=== PATIENT | male | born 1940 | race Caucasian/White ===

== ENCOUNTER 2022-05-20 15:24 | Inpatient (IN) | payer BC ==
[~2022-05-20] VITALS: Ht 172.7 cm; Wt 83.9 kg
[2022-05-20] VITALS (9 sets, daily range): BP systolic 96–131
[2022-05-20] MEDS ORDERED: FUROSEMIDE 40 MG/4 ML VIAL IVP ONE (15:45)
[2022-05-20] MEDS ORDERED: PROPOFOL DRIP 100 ML IV ONE ×2 (16:20→16:30)
[2022-05-20] MEDS ORDERED: SUCCINYLCHOLINE CHLORIDE 20 MG/ML(QUELICIN) ONE (17:00)
[2022-05-20] MEDS ORDERED: ETOMIDATE 20 MG/ 10 ML VIAL (AMIDATE) ONE (17:00)
[2022-05-20] MEDS ORDERED: AZITHROMYCIN 500 MG in NS 250 ML IV ONE (17:15)
[2022-05-20] MEDS ORDERED: NOREPINEPHRINE BITARTRATE 4 MG in NS 246 ML IV ONE (17:15)
[2022-05-20] MEDS ORDERED: cefTRIAXone 1 GM IVPB PREMIX 50 ML IV ONE (17:15)
[2022-05-20] MEDS ORDERED: AZITHROMYCIN 500 MG/VIAL (ZITHROMAX) IV ONE (17:19)
[2022-05-20] MEDS ORDERED: NOREPINEPHRINE 4 MG/4 ML VIAL IV ONE (17:20)
[2022-05-20 17:32] LABS: ANION GAP 13 (5-15); CALCIUM 8.8 mg/dL (8.4-11.0); CHLORIDE 104 mmol/L (98-107); CREATININE 1.95 mg/dL (0.55-1.30); GLUCOSE 117 mg/dL (70-99); UREA NITROGEN, BLOOD 52 mg/dL (8-21)
[2022-05-20 17:36] LABS: EOSINOPHILS % (AUTO) 0.2 % (0.0-4.0); HEMOGLOBIN 12.2 g/dL (14.0-18.0); LYMPHOCYTES # (AUTO) 0.3 K/uL (1.0-5.5); MEAN CORPUSCULAR VOLUME 83 fL (79.0-98.0); MONOCYTES # (AUTO) 1.6 K/uL (0.0-1.0)
[2022-05-20 17:39] LABS: ALANINE AMINOTRANSFERASE 34 U/L (12-78); ALBUMIN 3.1 g/dL (3.4-4.8); ASPARTATE AMINOTRANSFERASE 26 U/L (10-37); TOTAL BILIRUBIN 0.6 mg/dL (0.0-1.0)
[2022-05-20 17:45] LABS: BASOPHILS % (AUTO) 0.4 % (0.0-2.0); HEMATOCRIT 38.5 % (36-54); LYMPHOCYTES % (AUTO) 3.6 % (20.5-51.5); MEAN CORPUSCULAR HEMOGLOBIN 26 pg (27-31); MEAN CORPUSCULAR HGB CONC 32 % (32-36); NEUTROPHILS # (AUTO) 7.4 K/uL (1.8-7.7); NEUTROPHILS % (AUTO) 78.8 % (40.0-70.0); PLATELET COUNT (AUTO) 136 K/uL (130-430); RED BLOOD CELL COUNT(AUTO) 4.62 MIL/uL (4.2-6.2); RED CELL DISTRIBUTION WIDTH 20.1 % (9.0-15.0); WHITE BLOOD COUNT (AUTO) 9.4 K/uL (4.8-10.8)
[2022-05-20] MEDS ORDERED: NOREPINEPHRINE BITARTRATE 16 MG in NS 234 ML IV ONE (20:00)
[2022-05-20 20:22] LABS: BILIRUBIN,URINE NEGATIVE (NEGATIVE); BLOOD, URINE NEGATIVE (NEGATIVE); CLARITY/URINE CLEAR (CLEAR); COLOR,URINE YELLOW (YELLOW); GLUCOSE,URINE NEGATIVE (NEGATIVE); KETONES,URINE NEGATIVE (NEGATIVE); LEUKOCYTE ESTERASE ,URINE NEGATIVE (NEGATIVE); NITRITE, URINE NEGATIVE (NEGATIVE); PH,URINE 5.5 (5.0-8.0); PROTEIN URINE 1+ (NEGATIVE); UROBILINOGEN,URINE 0.2 (0.2-1.0)
[2022-05-20 20:24] LABS: RBC,URINE 0-3 /HPF (0-3); WBC,URINE 0-3 /HPF (0-3)
[2022-05-20 20:25] LABS: BACTERIA,URINE RARE /HPF (None Seen); HYALINE CASTS, URINE 0-10 /LPF (None Seen); MUCUS,URINE 2+ /LPF (None Seen); URINE AMORPHOUS URATE 1+ /HPF (None Seen)
[2022-05-20] MEDS ORDERED: ASPI-1155 PO (21:02)
[2022-05-20] MEDS ORDERED: WELSR150 PO (21:02)
[2022-05-20] MEDS ORDERED: TAMS-11 PO (21:02)
[2022-05-20] MEDS ORDERED: LIP40 PO (21:02)
[2022-05-20] MEDS ORDERED: FURO-149 PO (21:02)
[2022-05-20] MEDS ORDERED: RISP2TAB5 PO (21:02)
[2022-05-20] MEDS ORDERED: CARV6.2554 PO (21:02)
[2022-05-20] MEDS ORDERED: BENZ2TAB65 PO (21:02)
[2022-05-20] MEDS: PROPOFOL DRIP 100 ML IV PRN (22:17)
[2022-05-21] VITALS (36 sets, daily range): BP systolic 92–131
[2022-05-21] MEDS: PROPOFOL DRIP 100 ML IV PRN (04:30)
[2022-05-21 07:22] LABS: BASOPHILS # (AUTO) 0.1 K/uL (0.0-0.2); BASOPHILS % (AUTO) 0.6 % (0.0-2.0); EOSINOPHILS # (AUTO) 0.1 K/uL (0.0-0.4); EOSINOPHILS % (AUTO) 1.1 % (0.0-4.0); HEMATOCRIT 39.2 % (36-54); HEMOGLOBIN 12.9 g/dL (14.0-18.0); LYMPHOCYTES # (AUTO) 0.6 K/uL (1.0-5.5); LYMPHOCYTES % (AUTO) 6.8 % (20.5-51.5); MEAN CORPUSCULAR HEMOGLOBIN 27 pg (27-31); MEAN CORPUSCULAR HGB CONC 33 % (32-36); MEAN CORPUSCULAR VOLUME 81 fL (79.0-98.0); MONOCYTES # (AUTO) 1.8 K/uL (0.0-1.0); MONOCYTES % (AUTO) 20.3 % (1.7-9.3); NEUTROPHILS # (AUTO) 6.2 K/uL (1.8-7.7); PLATELET COUNT (AUTO) 139 K/uL (130-430); RED BLOOD CELL COUNT(AUTO) 4.87 MIL/uL (4.2-6.2); RED CELL DISTRIBUTION WIDTH 19.9 % (9.0-15.0); WHITE BLOOD COUNT (AUTO) 8.6 K/uL (4.8-10.8)
[2022-05-21 08:40] LABS: ANION GAP 16 (5-15); CALCIUM 8.6 mg/dL (8.4-11.0); CHLORIDE 104 mmol/L (98-107); CREATININE 1.94 mg/dL (0.55-1.30); GLUCOSE 109 mg/dL (70-99); UREA NITROGEN, BLOOD 53 mg/dL (8-21)
[2022-05-21 08:41] LABS: INR 1.9 (0.80-1.20); PROTHROMBIN TIME 19.2 SECS (9.5-12.5)
[2022-05-21 08:53] LABS: ALANINE AMINOTRANSFERASE 26 U/L (12-78); ASPARTATE AMINOTRANSFERASE 16 U/L (10-37); TOTAL BILIRUBIN 0.7 mg/dL (0.0-1.0)
[2022-05-21] MEDS ORDERED: FUROSEMIDE 40 MG/4 ML VIAL IVP SCH (09:00)
[2022-05-21] MEDS ORDERED: cefTRIAXone 1 GM IVPB PREMIX 50 ML IV SCH (09:30)
[2022-05-21] MEDS ORDERED: ONDANSETRON HCL 4 MG/2 ML VIAL IVP PRN (09:30)
[2022-05-21] MEDS ORDERED: MORPHINE 4 MG INJ. 4 MG/ML VIAL IVP PRN (09:30)
[2022-05-21] MEDS ORDERED: NALOXONE HCL 0.4 MG/ML AMP (NARCAN) IVP PRN (09:30)
[2022-05-21] MEDS ORDERED: IPRATROPIUM BROM 0.5 MG/2.5 ML VIAL.NEB (ATROVENT) INH PRN (09:30)
[2022-05-21] MEDS ORDERED: ALBUTEROL SULFATE 0.083% 2.5 MG/3 ML VIAL.NEB INH PRN (09:30)
[2022-05-21] MEDS ORDERED: MORPHINE 2 MG/ML INJ. SYRINGE IVP PRN (09:30)
[2022-05-21 09:31] LABS: NEUTROPHILS % (AUTO) 71.2 % (40.0-70.0)
[2022-05-21] MEDS: D5/0.45 NS 1,000 ML IV SCH (09:45)
[2022-05-21] MEDS: AZITHROMYCIN 500 MG in NS 250 ML IV SCH (11:00)
[2022-05-21] MEDS: PIPERACILLIN/TAZO 2.25G/DEX-IS 50 ML IV SCH ×3 (12:00→23:36)
[2022-05-21] MEDS ORDERED: NOREPINEPHRINE 4 MG/4 ML VIAL IV ONE (21:26)
[2022-05-21] MEDS: FUROSEMIDE 40 MG/4 ML VIAL IVP SCH (21:32)
[2022-05-21] MEDS: NOREPINEPHRINE BITARTRATE 16 MG in NS 234 ML IV PRN (21:33)
[2022-05-22] VITALS (42 sets, daily range): BP systolic 86–106
[2022-05-22] MEDS: PROPOFOL DRIP 100 ML IV PRN ×2 (03:36→17:26)
[2022-05-22] MEDS: D5/0.45 NS 1,000 ML IV SCH (06:04)
[2022-05-22] MEDS: PIPERACILLIN/TAZO 2.25G/DEX-IS 50 ML IV SCH ×4 (06:04→23:56)
[2022-05-22 07:23] LABS: BASOPHILS % (AUTO) 0.4 % (0.0-2.0); EOSINOPHILS # (AUTO) 0.1 K/uL (0.0-0.4); EOSINOPHILS % (AUTO) 0.7 % (0.0-4.0); HEMATOCRIT 37.9 % (36-54); HEMOGLOBIN 12.6 g/dL (14.0-18.0); LYMPHOCYTES # (AUTO) 0.3 K/uL (1.0-5.5); LYMPHOCYTES % (AUTO) 3.3 % (20.5-51.5); MEAN CORPUSCULAR HEMOGLOBIN 26 pg (27-31); MEAN CORPUSCULAR HGB CONC 33 % (32-36); MEAN CORPUSCULAR VOLUME 80 fL (79.0-98.0); MONOCYTES # (AUTO) 1.1 K/uL (0.0-1.0); MONOCYTES % (AUTO) 14.5 % (1.7-9.3); NEUTROPHILS # (AUTO) 6.4 K/uL (1.8-7.7); NEUTROPHILS % (AUTO) 81.1 % (40.0-70.0); PLATELET COUNT (AUTO) 134 K/uL (130-430); RED BLOOD CELL COUNT(AUTO) 4.76 MIL/uL (4.2-6.2); RED CELL DISTRIBUTION WIDTH 19.6 % (9.0-15.0); WHITE BLOOD COUNT (AUTO) 7.9 K/uL (4.8-10.8)
[2022-05-22 07:52] LABS: ANION GAP 11 (5-15); C-REACTIVE PROTEIN QUANT 7.4 mg/dL (0-0.5); CALCIUM 8.4 mg/dL (8.4-11.0); CHLORIDE 106 mmol/L (98-107); CREATININE 1.95 mg/dL (0.55-1.30); GLUCOSE 143 mg/dL (70-99); PHOSPHORUS 4.7 mg/dL (2.7-4.5); UREA NITROGEN, BLOOD 49 mg/dL (8-21)
[2022-05-22 08:13] LABS: ERYTHROCYTE SEDIMENTATION RATE 7 MM/HR (0-15)
[2022-05-22] MEDS: FUROSEMIDE 40 MG/4 ML VIAL IVP SCH ×2 (09:56→21:15)
[2022-05-22] MEDS: AZITHROMYCIN 500 MG in NS 250 ML IV SCH (11:59)
[2022-05-22] MEDS ORDERED: DEXMEDETOMIDINE HCL 200 MCG/2 ML VIAL IV ONE (20:09)
[2022-05-22] MEDS: HEPARIN SODIUM,PORCINE 5,000 UNITS/ML VIAL SUBCUT SCH (21:15)
[2022-05-23] VITALS (16 sets, daily range): BP systolic 62–104
[2022-05-23] MEDS: NOREPINEPHRINE BITARTRATE 16 MG in NS 234 ML IV PRN (01:15)
[2022-05-23] MEDS: D5/0.45 NS 1,000 ML IV SCH (01:20)
[2022-05-23] MEDS: PIPERACILLIN/TAZO 2.25G/DEX-IS 50 ML IV SCH ×2 (05:55→12:00)
[2022-05-23] MEDS: FUROSEMIDE 40 MG/4 ML VIAL IVP SCH ×2 (05:56→14:00)
[2022-05-23 07:10] LABS: BASOPHILS % (AUTO) 0.1 % (0.0-2.0); EOSINOPHILS # (AUTO) 0.1 K/uL (0.0-0.4); EOSINOPHILS % (AUTO) 0.5 % (0.0-4.0); HEMATOCRIT 38.1 % (36-54); HEMOGLOBIN 12.9 g/dL (14.0-18.0); LYMPHOCYTES # (AUTO) 0.5 K/uL (1.0-5.5); LYMPHOCYTES % (AUTO) 5.5 % (20.5-51.5); MEAN CORPUSCULAR HEMOGLOBIN 27 pg (27-31); MEAN CORPUSCULAR HGB CONC 34 % (32-36); MEAN CORPUSCULAR VOLUME 79 fL (79.0-98.0); MONOCYTES # (AUTO) 1.9 K/uL (0.0-1.0); NEUTROPHILS % (AUTO) 73.9 % (40.0-70.0); PLATELET COUNT (AUTO) 135 K/uL (130-430); RED CELL DISTRIBUTION WIDTH 19.3 % (9.0-15.0); WHITE BLOOD COUNT (AUTO) 9.5 K/uL (4.8-10.8)
[2022-05-23 07:51] LABS: ANION GAP 9 (5-15); CALCIUM 8.1 mg/dL (8.4-11.0); CHLORIDE 109 mmol/L (98-107); CREATININE 2.13 mg/dL (0.55-1.30); GLUCOSE 122 mg/dL (70-99); PHOSPHORUS 4.6 mg/dL (2.7-4.5); UREA NITROGEN, BLOOD 43 mg/dL (8-21)
[2022-05-23 08:06] LABS: ERYTHROCYTE SEDIMENTATION RATE 13 MM/HR (0-15)
[2022-05-23] MEDS: HEPARIN SODIUM,PORCINE 5,000 UNITS/ML VIAL SUBCUT SCH (09:00)
[2022-05-23] MEDS ORDERED: NALOXONE HCL 0.4 MG/ML AMP (NARCAN) IVP PRN (10:15)
[2022-05-23] MEDS: AZITHROMYCIN 500 MG in NS 250 ML IV SCH (10:31)
[2022-05-23] MEDS: MORPHINE SULFATE IN 0.9 % NACL 100 ML IV PRN ×4 (10:43→20:12)
[2022-05-23] MEDS ORDERED: LORazepam 2 MG/ML VIAL IVP PRN ×2 (11:00→12:00)
[2022-05-23] MEDS: LORazepam 2 MG/ML VIAL IM PRN ×4 (12:08→16:24)
[2022-05-23] MEDS ORDERED: MORPHINE SULFATE IN 0.9 % NACL 100 ML IV PRN (13:30)
== END 2022-05-23 20:47 | DRG 871 ==
LOC: SED 15:24 → SIC 19:38
PROVIDERS: ADMIT Internal Medicine; ATTEND Internal Medicine
PROC: 5A1945Z Respiratory Ventilation, 24-96 Consecutive Hours (ICD-10-PCS; principal; 2022-05-20)
PROC: 02HV33Z Insertion of Infusion Device into Superior Vena Cava, Percutaneous Approach (ICD-10-PCS; 2022-05-20)
PROC: 0BH17EZ Insertion of Endotracheal Airway into Trachea, Via Natural or Artificial Opening (ICD-10-PCS; 2022-05-20)
DX: A41.9 Sepsis, unspecified organism (principal); I50.43 Acute on chronic combined systolic (congestive) and diastolic (congestive) heart failure; J96.01 Acute respiratory failure with hypoxia; J18.9 Pneumonia, unspecified organism; J44.0 Chronic obstructive pulmonary disease with (acute) lower respiratory infection; N17.9 Acute kidney failure, unspecified; E87.20 Acidosis, unspecified; I13.0 Hypertensive heart and chronic kidney disease with heart failure and stage 1 through stage 4 chronic kidney disease, or unspecified chronic kidney disease; I24.8 Other forms of acute ischemic heart disease; Z20.822 Contact with and (suspected) exposure to COVID-19; I25.10 Atherosclerotic heart disease of native coronary artery without angina pectoris; E87.5 Hyperkalemia; R73.9 Hyperglycemia, unspecified; E88.09 Other disorders of plasma-protein metabolism, not elsewhere classified; R53.81 Other malaise; S00.81XA Abrasion of other part of head, initial encounter; W18.39XA Other fall on same level, initial encounter; Z66 Do not resuscitate; N18.9 Chronic kidney disease, unspecified; F20.9 Schizophrenia, unspecified; Z79.82 Long term (current) use of aspirin; Z79.899 Other long term (current) drug therapy; Z87.891 Personal history of nicotine dependence; Y93.89 Activity, other specified; Y92.89 Other specified places as the place of occurrence of the external cause; Y99.8 Other external cause status
CPT/HCPCS: 36415; 36600; 70450-TC; 71045; 76376; 76604; 76770; 80048; 80053; 81000; 82550; 82803-TC; 82962; 83605; 83735; 83880; 84100; 84443; 84484; 85025; 85379; 85610-TC; 85651-TC; 86140; 87040; 87070-TC; 87081; 87205-TC; 93005; 93306; 94002; 94003; 94640; 96365; 96368; 99291; J0330; J0456; J0696; J1644; J1940; J2060; J2270; J2543; J2704; J3490; J7050